=== PATIENT | male | born 1940 | race African-American/Black ===

== ENCOUNTER → 2017-10-29 | Outpatient (CLI) | payer MEDICARE, OTHER ==
[~2017-10-29] MED LIST: BACITRACIN INJ 50,000 UNIT VIAL ONE; CEFAZOLIN INJ 1 GM VIAL ONE; FENTANYL CITRATE INJ/PF 100 MCG/2 ML AMPUL ONE; HEPARIN SODIUM,PORCINE/NS/PF 0 UNIT/0 ML RTUINJ IV ONE; LIDOCAINE 0.5% INJ-PF (5 MG/ML) 50 ML SDV ONE; MIDAZOLAM 2 MG/2 ML INJ ONE
--- NOTE | 2017-10-29 16:41 | RADIOLOGY REPORT (SQ) ---
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 Images reviewed with lung, soft tissue and bone windows. Reconstructed coronal and sagittal MPR images reviewed. All images stored on PACS. All CT scanners at this facility use dose modulation, iterative reconstruction, and/or weight based d osing when appropriate to reduce radiation dose to as low as reasonably achievable (ALARA). [facility]: Dose Right [facility]: CareDose [facility]: Dose Right [facility]: Teradose 4D [facility]: Smart [employer] CONTRAST TYPE AND DOSE: See separate report of the same date. RENAL FUNCTION: See separate report. RADIATION DOSE: . LIMITATIONS: None. FINDINGS: LUNGS AND PLEURA: No suspicious nodules. No effusions. HILAR AND MEDIASTINAL STRUCTURES: Calcified mediastinal nodes. HEART AND VASCULAR STRUCTURES: No aneurysm or dissection. No central pulmonary emboli. No pericardi al effusion. HARDWARE: CABG. UPPER ABDOMEN: See separate report of the CT of the abdomen. THYROID AND OTHER SOFT TISSUES: No masses. No adenopathy. BONES: No acute findings. OTHER: Gynecomastia. IMPRESSION: No evidence of local recurrence or metastatic disease. TECHNICAL DOCUMENTATION: JOB ID: [id number] Quality ID # [id number]: Final reports with documentation of one or more dose reduction techniques (e.g., Au tomated exposure control, adjustment of the mA and/or kV according to patient size, use of iterative reconstruction technique) 2010 [employer]- All Rights Reserved
--- NOTE | 2017-10-29 16:43 | RADIOLOGY REPORT (SQ) ---
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 No oral contrast. Images reviewed with lung, soft tissue, and bone windows. Reconstructed coronal and sagittal MPR images reviewed. Delayed images for evaluation of the urinary system also acquired. All images stored on PACS. All CT scanners at this facility use dose modulation, iterative reconstruction, and/or weight based d osing when appropriate to reduce radiation dose to as low as reasonably achievable (ALARA). [facility]: Dose Right [facility]: CareDose [facility]: Dose Right [facility]: Teradose 4D [facility]: Activation Life CONTRAST TYPE AND DOSE: contrast/concentration: Isovue 370.00 mg/ml; Total Contrast Delivered: 97.0 ml; Total Saline Delivered: 72.0 ml RENAL FUNCTION: Creatinine 1.1 RADIATION DOSE: CT Rad equipment meets quality standard of care and radiation dose reduction techniq ues were employed. CTDIvol: 7.8 - 10.4 mGy. DLP: 1444 mGy-cm.. LIMITATIONS: None. FINDINGS: LOWER CHEST: See separate report of the CT of the chest. LIVER: Benign cysts. No solid masses. SPLEEN: Normal size. No focal lesions. PANCREAS: No masses. No significant calcifications. No adjacent inflammation or peripancreatic fluid collections. Pancreatic duct not dilated. GALLBLADDER: No identified stones by CT criteria. No inflammatory changes to suggest cholecystitis. ADRENAL GLANDS: No significant masses or asymmetry. RIGHT KIDNEY AND URETER: No solid masses. No significant calcifications. No hydronephrosis or hyd roureter. LEFT KIDNEY AND URETER: No solid masses. No significant calcifications. No hydronephrosis or hydr oureter. AORTA AND VESSELS: No aneurysm. No dissection. Renal arteries, SMA, celiac without stenosis. RETROPERITONEUM: No retroperitoneal adenopathy, hemorrhage or masses. BOWEL AND PERITONEAL CAVITY: No masses or inflammatory changes. No free fluid or peritoneal masses. APPENDIX: Not visualized. PELVIS: No mass. No free fluid. Normal bladder. ABDOMINAL WALL: Umbilical hernia containing nondilated bowel. BONES: No acute findings. OTHER: No other significant finding. IMPRESSION: No evidence of local recurrence or metastatic disease. TECHNICAL DOCUMENTATION: JOB ID: [id number] Quality ID # [id number]: Final reports with documentation of one or more dose reduction techniques (e.g., Au tomated exposure control, adjustment of the mA and/or kV according to patient size, use of iterative reconstruction technique) 2010 [employer]- All Rights Reserved
== END ==
LOC: RAD 14:13
PROVIDERS: ATTEND Internal Medicine
DX: C81.41 Lymphocyte-rich Hodgkin lymphoma, lymph nodes of head, face, and neck (principal)
CPT/HCPCS: 71260; 74177; 82565; J0690; J1644; J2250; J3010; J3490